=== PATIENT | male | born 1950 | race Caucasian/White ===

== ENCOUNTER 2020-09-28 00:17 | Inpatient (IN) | payer MEDICARE ==
[2020-09-28 00:53] LABS: #Basophils 0.1 10x3/uL (0.0-0.2); #Eosinphils 0.2 10x3/uL (0.0-0.5); #Monocytes 0.6 10x3/uL (0.0-1.1); #Neutrophils 4.3 10x3/uL (1.5-8.4); %Basophils 0.7 % (0.0-2.0); %Eosinophils 2.7 % (0.0-6.0); %Lymphocytes 25.8 % (18.0-47.0); %Monocytes 8.9 % (0.0-10.0); %Neutrophils 61.5 % (40.0-75.0); Hemoglobin 15.9 g/dL (13.5-17.5); Mean Corpuscular HGB CONC 32.4 g/dL (32.0-36.0); Mean Corpuscular Hemoglobin 30.3 pg (27.0-33.0); Mean Corpuscular Volume 93.5 fl (81.2-95.1); Mean Platelet Volume 9.4 fl (7.4-10.4); Platelet Count 247 10x3/uL (150-450); RBC Distribution Width 13.5 % (11.5-14.5); Red Blood Cell (RBC) Count 5.24 10x6/uL (4.32-5.72); White Blood Cell (WBC) Count 7.1 10x3/uL (3.5-10.5)
[2020-09-28] MEDS ORDERED: methylPREDNISolone Sod Succ/PF 125 MG/2 ML VIAL ONE (00:57)
[2020-09-28] MEDS ORDERED: Albuterol Sulfate 2.5 mg/0.5 ml Neb ONE (00:59)
[2020-09-28 01:03] LABS: ALT (SGPT) 18 U/L (8-55); AST (SGOT) 23 U/L (5-34); Albumin 4.1 g/dL (3.4-4.8); Alkaline Phosphatase 72 U/L (40-110); Anion Gap 14 mmol/L (10-20); BUN (Urea Nitrogen) 12 mg/dL (8.4-25.7); Bilirubin, Total 0.9 mg/dL (0.2-1.2); Calc. Creatinine Clearance 0 mL/min (70-130); Calcium 10.1 mg/dL (7.8-10.44); Carbon Dioxide 33 mmol/L (23-31); Chloride 97 mmol/L (98-107); Globulin 2.8 g/dL (2.4-3.5); Glucose 97 mg/dL (80-115); Potassium 4.2 mmol/L (3.5-5.1); Protein, Total 6.9 g/dL (5.8-8.1)
[2020-09-28 01:06] LABS: Sodium 140 mmol/L (136-145)
[2020-09-28] MEDS ORDERED: HYDROcodone/Acetaminophen 5/325 mg Tablet PO PRN (01:25)
[2020-09-28] MEDS ORDERED: Senokot S 8.6-50 MG TAB PO PRN (01:25)
[2020-09-28] MEDS ORDERED: Acetaminophen 325 MG TAB PO PRN (01:25)
[2020-09-28] MEDS ORDERED: Guaifenesin DM 100-10/5 ML UDCUP PO PRN (01:25)
[2020-09-28] MEDS ORDERED: Zolpidem Tartrate 5 MG TAB PO PRN (01:25)
[2020-09-28] MEDS ORDERED: Calcium Carbonate 500 MG ChewTAB PO PRN (01:25)
[2020-09-28 01:26] LABS: CKMB 1.6 ng/mL (0-6.6)
[2020-09-28] MEDS ORDERED: Magnesium 2 GM/50 ML 2 GM in Premix Bag 1 BAG IVPB SCH (01:30)
[2020-09-28] MEDS ORDERED: Metoprolol Tartrate 25 MG TAB ONE (01:42)
[2020-09-28] MEDS ORDERED: Cefdinir 300 MG CAP PO SCH (01:45)
[2020-09-28] MEDS ORDERED: Metoprolol Tartrate 25 MG TAB PO SCH (01:45)
[2020-09-28 03:44] VITALS: BMI 30.3
[2020-09-28] MEDS ORDERED: Enoxaparin Sodium 100 MG/ML SYRINGE SC SCH ×2 (04:00→21:00)
[2020-09-28 05:44] LABS: Anion Gap 15 mmol/L (10-20); BUN (Urea Nitrogen) 13 mg/dL (8.4-25.7); Calc. Creatinine Clearance 135 mL/min (70-130); Calcium 9.4 mg/dL (7.8-10.44); Carbon Dioxide 28 mmol/L (23-31); Chloride 102 mmol/L (98-107); Glucose 147 mg/dL (80-115); Magnesium 2.2 mg/dL (1.6-2.6); Potassium 4.4 mmol/L (3.5-5.1); Sodium 141 mmol/L (136-145)
[2020-09-28] MEDS: methylPREDNISolone Sod Succ/PF 125 MG/2 ML VIAL IVP SCH ×4 (05:47→19:33)
[2020-09-28 05:52] LABS: CKMB 1.5 ng/mL (0-6.6)
[2020-09-28] MEDS ORDERED: Mometasone 200 MCG/Formoterol 5 MCG 120 PUFF INHALER INH SCH (06:30)
[2020-09-28] MEDS: Famotidine 20 MG TAB PO SCH ×2 (09:00→19:33)
[2020-09-28] MEDS: Metoprolol Tartrate 25 MG TAB PO SCH ×2 (09:00→21:37)
[2020-09-28] MEDS: Aspirin 81 mg Enteric Coated Tablet PO SCH (09:00)
[2020-09-28] MEDS: guaiFENesin ER 600 MG TAB PO SCH ×2 (09:00→19:33)
[2020-09-28] MEDS ORDERED: Mometasone/Formoterol 200/5 60 PUFF INH SCH (13:45)
[2020-09-28] MEDS: Cefdinir 300 MG CAP PO SCH (19:32)
[2020-09-28] MEDS: Mometasone/Formoterol 200/5 60 PUFF INH SCH (19:55)
[2020-09-29] MEDS: methylPREDNISolone Sod Succ/PF 125 MG/2 ML VIAL IVP SCH (06:37)
[2020-09-29] MEDS: Mometasone/Formoterol 200/5 60 PUFF INH SCH (07:35)
[2020-09-29] MEDS: Aspirin 81 mg Enteric Coated Tablet PO SCH (08:49)
[2020-09-29] MEDS: Famotidine 20 MG TAB PO SCH (08:49)
[2020-09-29] MEDS: guaiFENesin ER 600 MG TAB PO SCH (08:50)
[2020-09-29] MEDS: Cefdinir 300 MG CAP PO SCH (08:50)
[2020-09-29] MEDS: Metoprolol Tartrate 25 MG TAB PO SCH (08:50)
[2020-09-29] MEDS: Acetylcysteine 20% 200 MG/ML 30 ML VIAL PO SCH ×2 (08:52→08:53)
[2020-09-29] MEDS ORDERED: Enoxaparin Sodium 40 MG/0.4 ML SYRINGE SC SCH (09:00)
[2020-09-29 13:05] VITALS: BP 124/80; TEMP 97.4
== END 2020-09-29 13:46 | disposition home or self-care (01) | DRG 189 ==
LOC: CSHERS 00:17 → CSHTELE 02:30
PROVIDERS: ADMIT Student in an Organized Health Care Education/Training Program; ATTEND Internal Medicine
DX: J96.21 Acute and chronic respiratory failure with hypoxia (principal); I21.A1 Myocardial infarction type 2; J43.9 Emphysema, unspecified; R77.8 Other specified abnormalities of plasma proteins; I48.91 Unspecified atrial fibrillation; R79.89 Other specified abnormal findings of blood chemistry; G47.33 Obstructive sleep apnea (adult) (pediatric); R00.1 Bradycardia, unspecified; Z99.81 Dependence on supplemental oxygen; Z79.82 Long term (current) use of aspirin; Z79.899 Other long term (current) drug therapy; Z86.718 Personal history of other venous thrombosis and embolism; Z87.442 Personal history of urinary calculi; Z98.84 Bariatric surgery status; Z87.891 Personal history of nicotine dependence; Z82.3 Family history of stroke; I10 Essential (primary) hypertension
CPT/HCPCS: 36416; 71045; 80053; 82553; 83735; 83880; 84443; 84484; 85025; 93005; 93306; 94640; 94760; 96374; 96375; J1650; J2930; J7611; J7620

== ENCOUNTER 2022-01-03 13:08 | Emergency (ER) | payer MEDICARE ==
[2022-01-03] MEDS ORDERED: HYDROcodone/Acetaminophen 5/325 mg Tablet ONE (15:21)
== END 2022-01-03 17:07 | disposition home or self-care (01) ==
LOC: CSHERS 13:08
DX: S22.32XA Fracture of one rib, left side, initial encounter for closed fracture (principal); I10 Essential (primary) hypertension; J44.9 Chronic obstructive pulmonary disease, unspecified; I48.91 Unspecified atrial fibrillation; F17.220 Nicotine dependence, chewing tobacco, uncomplicated; W18.30XA Fall on same level, unspecified, initial encounter
CPT/HCPCS: 70450; 71045; 93005; 94799

== ENCOUNTER 2022-05-11 14:52 | Emergency (ER) | payer MEDICARE ==
[2022-05-11 16:18] LABS: #Eosinphils 0.2 10x3/uL (0.0-0.5); #Monocytes 0.5 10x3/uL (0.0-1.1); #Neutrophils 4.6 10x3/uL (1.5-8.4); %Basophils 0.4 % (0.0-2.0); %Eosinophils 3.5 % (0.0-6.0); %Lymphocytes 21.5 % (18.0-47.0); %Monocytes 7.3 % (0.0-10.0); %Neutrophils 67.2 % (40.0-75.0); Hemoglobin 14.3 g/dL (13.5-17.5); Mean Corpuscular HGB CONC 32.1 g/dL (32.0-36.0); Mean Corpuscular Hemoglobin 31.1 pg (27.0-33.0); Mean Corpuscular Volume 96.7 fl (81.2-95.1); Mean Platelet Volume 9.7 fl (7.4-10.4); Platelet Count 196 10x3/uL (150-450); RBC Distribution Width 13.6 % (11.5-14.5); White Blood Cell (WBC) Count 6.9 10x3/uL (3.5-10.5)
[2022-05-11 16:21] LABS: Bilirubin Neg (Negative); Blood, Urine 150 (Negative); Clarity Clear (Clear); Glucose, Urine (Dipstick) Normal (Negative); Ketone, Urine Negative (Negative); Leukocyte 500 (Negative); Nitrite Negative (Negative); Protein, Urine (Dipstick) 30 mg/dl (Neg-Trace); Specific Gravity, Urine 1.015 (1.005-1.030)
[2022-05-11 16:28] LABS: RBC/HPF 21-50 HPF (0-3)
[2022-05-11 16:30] LABS: Bacteria/HPF 1+ HPF (None Seen); Squamous Epithelial 0-3 HPF (0-3); Transitional Epithelial 0-3 HPF (None Seen)
[2022-05-11 16:31] LABS: Calcium Oxalate Crystals Rare HPF (None Seen)
[2022-05-11 16:33] LABS: ALT (SGPT) 11 U/L (8-55); AST (SGOT) 24 U/L (5-34); Albumin 3.9 g/dL (3.4-4.8); Alkaline Phosphatase 65 U/L (40-110); Anion Gap 12 mmol/L (10-20); BUN (Urea Nitrogen) 19 mg/dL (8.4-25.7); Bilirubin, Total 0.5 mg/dL (0.2-1.2); Calc. Creatinine Clearance 0 mL/min (70-130); Calcium 9.8 mg/dL (7.8-10.44); Carbon Dioxide 35 mmol/L (23-31); Chloride 102 mmol/L (98-107); Estimated GFR 94; Globulin 3.1 g/dL (2.4-3.5); Glucose 93 mg/dL (83-110); Potassium 4.2 mmol/L (3.5-5.1); Sodium 145 mmol/L (136-145)
[2022-05-11] MEDS ORDERED: cefTRIAXone\\ROCEPHIN 500 MG VIAL ONE (17:00)
[2022-05-11] MEDS ORDERED: Sterile Water 10 ML ONE (17:01)
[2022-05-11] MEDS ORDERED: cefTRIAXone\\ROCEPHIN 1 GM VIAL ONE (17:02)
== END 2022-05-11 17:25 | disposition home or self-care (01) ==
LOC: CSHERS 14:52
DX: N13.2 Hydronephrosis with renal and ureteral calculous obstruction (principal); N30.00 Acute cystitis without hematuria; J44.9 Chronic obstructive pulmonary disease, unspecified; F17.220 Nicotine dependence, chewing tobacco, uncomplicated; Z79.899 Other long term (current) drug therapy
CPT/HCPCS: 36415; 74176; 80053; 81003; 81015; 85025; 87086; 96372; J0696

== ENCOUNTER 2022-09-22 14:41 | Emergency (ER) | payer MEDICARE ==
[2022-09-22 15:49] LABS: PTT 26.4 sec (22.0-33.0)
[2022-09-22 15:50] LABS: #Monocytes 0.3 10x3/uL (0.0-1.1); #Neutrophils 5.1 10x3/uL (1.5-8.4); %Basophils 0.3 % (0.0-2.0); %Eosinophils 0.2 % (0.0-6.0); %Neutrophils 77.3 % (40.0-75.0); Hemoglobin 14.7 g/dL (13.5-17.5); Mean Corpuscular HGB CONC 30.8 g/dL (32.0-36.0); Mean Corpuscular Hemoglobin 30.1 pg (27.0-33.0); Mean Platelet Volume 9.8 fl (7.4-10.4); Platelet Count 185 10x3/uL (150-450); RBC Distribution Width 12.5 % (11.5-14.5); Red Blood Cell (RBC) Count 4.88 10x6/uL (4.32-5.72); White Blood Cell (WBC) Count 6.6 10x3/uL (3.5-10.5)
[2022-09-22 15:53] LABS: ALT (SGPT) 13 U/L (8-55); AST (SGOT) 27 U/L (5-34); Alkaline Phosphatase 71 U/L (40-110); Anion Gap 15 mmol/L (10-20); BUN (Urea Nitrogen) 17 mg/dL (8.4-25.7); Bilirubin, Total 0.6 mg/dL (0.2-1.2); Calc. Creatinine Clearance 0 mL/min (70-130); Calcium 9.7 mg/dL (7.8-10.44); Carbon Dioxide 36 mmol/L (23-31); Chloride 96 mmol/L (98-107); Estimated GFR 92; Globulin 3.5 g/dL (2.4-3.5); Glucose 118 mg/dL (83-110); Potassium 4.3 mmol/L (3.5-5.1); Protein, Total 7.5 g/dL (5.8-8.1); Sodium 143 mmol/L (136-145)
[2022-09-22 15:58] LABS: SARS-CoV-2 NAA Rapid Test Not Detected (NotDetected)
[2022-09-22 16:12] LABS: Bilirubin Neg (Negative); Blood, Urine 250 (Negative); Clarity Slightly Cloudy (Clear); Glucose, Urine (Dipstick) Normal (Negative); Ketone, Urine Negative (Negative); Leukocyte 100 (Negative); Nitrite Negative (Negative); Protein, Urine (Dipstick) 30 mg/dl (Neg-Trace)
[2022-09-22 16:27] LABS: Bacteria/HPF 1+ HPF (None Seen); RBC/HPF Greater than 50 HPF (0-3); Squamous Epithelial 0-3 HPF (0-3); WBC/HPF 21-50 HPF (0-3)
[2022-09-22] MEDS ORDERED: cefTRIAXone (ROCEPHIN) 2 GM VIAL ONE (17:22)
== END 2022-09-22 18:18 | disposition home or self-care (01) ==
LOC: CSHERS 14:41
DX: N39.0 Urinary tract infection, site not specified (principal); Z20.822 Contact with and (suspected) exposure to COVID-19; F17.220 Nicotine dependence, chewing tobacco, uncomplicated; I48.91 Unspecified atrial fibrillation; J44.9 Chronic obstructive pulmonary disease, unspecified
CPT/HCPCS: 0240U; 71045; 83605; 83880; 84484; 85610; 85730; 87040; 87086; 93005; 96374; 99285; 36415; 80053; 81003; 81015; 84443; 85025; J0696

== ENCOUNTER 2022-12-31 12:51 | Outpatient (CLI) | payer MEDICARE | END 2022-12-31 12:52 | disposition home or self-care (01) | LOC: CSHRAD 12:51 | PROVIDERS: ATTEND Nurse Practitioner Family | DX: M47.817 Spondylosis without myelopathy or radiculopathy, lumbosacral region (principal); M48.56XD Collapsed vertebra, not elsewhere classified, lumbar region, subsequent encounter for fracture with routine healing | CPT/HCPCS: 72120 ==